=== PATIENT | female | born 1970 | race Caucasian/White ===

== ENCOUNTER 2024-02-11 13:32 | Emergency (ER) | payer MEDICARE, MEDICAID, SELFPAY ==
[2024-02-11 13:34] VITALS: BP 144/89; PULSE 76; RESP 18; TEMP 36.2; O2SAT 93; BMI 47.9
--- NOTE | 2024-02-11 15:12 | EDS_ITS ---
HPI History of Present Illness Chief Complaint: Ear Problem Informant: patient Narrative Narrative: Patient presents with concern for bug or insect/foreign body in her left ear. Patient states last night she started noticing a sensation but is much worse today. She feels like there is a sound in her ear and every once a while the bug might crawl output and go back in. She is not having a significant pain in her ear. Notes she has had some mild sinus congestion. Denies any change in her hearing. Is also having some pain at the base of her ear down to her neck. No other complaints or concerns reported at this time. Denies any trauma. [facility] Home Medications ?Medication ?Instructions ?Recorded ?Last Taken ?Type Albuterol Inhaler 02/04/14 Unknown History Bentyl 02/04/14 Unknown History Carafate 02/04/14 Unknown History Flexeril 02/04/14 Unknown History Gabapentin 02/04/14 Unknown History Latuda 02/04/14 Unknown History Prilosec 02/04/14 Unknown History Spiriva 18 MCG 02/04/14 Unknown History Symbicort 160/4.5 Mcg Inhaler (SP) 02/04/14 Unknown History Xanax 02/04/14 Unknown History Zofran 02/04/14 Unknown History ciprofloxacin HCl 0.2 % ear drops 5 drp LEFT EAR BID 7 days #14 ea 02/11/24 Unknown Rx in a dropperette Allergy/AdvReac Type Severity Reaction Status Date / Time adhesive Allergy Rash Verified 02/11/24 13:34 Social History Smoking Status: Current every day smoker tobacco type: cigarettes ROS ROS ED Constitutional Constitutional ED: Denies fever(s) ENT ENT ED: Reports other Details: Foreign body sensation in the left ear, congestion ; Denies ear pain or sore throat Respiratory/Chest Respiratory/Chest: Denies cough Neurologic Neurologic: Denies headache(s) Psychiatric Psychiatric: Denies anxiety EXAM Physical Exam Const Vital Signs: 02/11/24 13:34 Temperature 97.2 F L Temperature Source Temporal Pulse Rate 76 Respiratory Rate 18 Blood Pressure 144/89 H Blood Pressure Mean 107 Pulse Ox 93 Oxygen Delivery Method Room Air Positive well nourished and well developed General Appearance ED: well developed and NAD HEENT Reports TM's clear and moist mucous membranes HEENT Narrative: Normal tympanic membranes bilaterally. No foreign body visualized in the ear canal. No significant injection of the tympanic membrane or air-fluid level noted behind the ears. No mastoid tenderness or redness of the postauricular space. No trauma noted to the ears. Tympanic Membrane ED: Yes TM's clear Eyes PERRL and EOMs intact bilaterally Neck supple Chest Wall inspection of chest normal Resp normal respiratory effort Neuro oriented x3 Sensorium / Orientation: alert Psych mental status grossly normal Skin no rashes or lesions noted and no wounds MDM MDM MDM Narrative Medical decision making narrative: Patient evaluated for concern of foreign body/bug in her left ear. Other areas visualized I do not appreciate any foreign body. I do not see any trauma. Discussed that she could have some increased pressure over the panic membrane/eustachian tube it is causing a foreign body sensation or feeling of fullness in her ear. Counseled that she can use [id number] decongestants as needed. Will prescribe her an as needed prescription for otitis externa in case the discomfort in her ear is an early otitis externa symptom. Patient agreeable with plan of care. Given return precautions. Discharged home in stable Discharge Plan Triage Chief Complaint: Ear Problem ED Provider: Alayna Mccallum Dx/Rx/DC Orders Clinical Impression: Foreign body sensation in left ear canal Instructions: ED Earache Without Infection (Adult) Prescriptions: New ciprofloxacin HCl 0.2 % dropperette 5 drp LEFT EAR BID 7 Days Qty: 14 0RF No Action Albuterol Inhaler Bentyl Carafate Flexeril Gabapentin Latuda Prilosec Spiriva 18 MCG Symbicort 160/4.5 Mcg Inhaler (SP) Xanax Zofran Primary Care Provider: Christine Best,Out of Referrals: Christine Best,Out of [Primary Care Provider] - Activity Restrictions/Additional Instructions: There is nothing in your ear. I recommend using [id number] decongestants as you might have some increased pressure in your ear. Print Language: Bahraini Disposition Disposition: Home, Self Care
== END 2024-02-11 15:39 | disposition home or self-care (01) ==
LOC: ED 15:31
PROVIDERS: Emergency Provider Emergency Medicine; Visit Provider Emergency Medicine
DX: R09.A9 Foreign body sensation, other site (principal); F17.210 Nicotine dependence, cigarettes, uncomplicated
CPT/HCPCS: 99282